=== PATIENT | female | born 1965 | race Caucasian/White ===

== ENCOUNTER 2021-12-06 23:38 | Observation (INO) | payer OTHER ==
[2021-12-06] MEDS ORDERED: Sodium Chloride 0.9% 10 ML Syringe FLUSH PRN (23:47)
[2021-12-06] MEDS ORDERED: Sodium Chloride 0.9% 20 ML SDV IV PRN (23:47)
[2021-12-06] MEDS ORDERED: Sodium Chloride 0.9% 2.5 ML Syringe FLUSH PRN (23:47)
[2021-12-07] MEDS ORDERED: Iopamidol 755 MG/ML 500 ML Multipack Bottle IVPUSH ONE (01:58)
[2021-12-07] MEDS ORDERED: Ondansetron 4 MG/2 ML SDV IVPUSH ONE (02:12)
[2021-12-07] MEDS ORDERED: Acetaminophen 325 MG Tab PO PRN (05:08)
[2021-12-07] MEDS ORDERED: Albuterol/Ipratropium 3.0-0.5 MG/3 ML Neb Soln NEB PRN (06:16)
[2021-12-07] MEDS ORDERED: Ondansetron 4 MG/2 ML SDV IVPUSH PRN (06:16)
[2021-12-07] MEDS ORDERED: Lactated Ringers 1,000 ML IV SCH (06:30)
[2021-12-07 07:19] LABS: CARBON DIOXIDE,CO2 25.4 mmol/L (21.0-32.0); POTASSIUM,K 4.8 mmol/L (3.5-5.1)
[2021-12-07] MEDS ORDERED: Pantoprazole 40 MG in Sodium Chloride 0.9% 10 ML IVPUSH SCH (09:00)
[2021-12-07] MEDS ORDERED: Aspirin 81 MG Tab.Chew PO SCH (10:45)
[2021-12-07 11:11] LABS: HEMOGLOBIN A1C 5.6 %
[2021-12-07 15:00] VITALS: BP 99/53; PULSE 64
[2021-12-07] MEDS ORDERED: atorvaSTATin 40 MG Tab PO SCH (21:00)
== END 2021-12-07 15:25 | disposition home or self-care (01) ==
LOC: MW.ED 23:38 → MW.MS 12-07 03:26
PROVIDERS: ADMIT Student in an Organized Health Care Education/Training Program; ATTEND Student in an Organized Health Care Education/Training Program
DX: R53.1 Weakness (principal); R41.82 Altered mental status, unspecified; G43.909 Migraine, unspecified, not intractable, without status migrainosus; E78.00 Pure hypercholesterolemia, unspecified; I10 Essential (primary) hypertension; E11.9 Type 2 diabetes mellitus without complications; Z79.82 Long term (current) use of aspirin; Z20.822 Contact with and (suspected) exposure to COVID-19; Z79.899 Other long term (current) drug therapy
CPT/HCPCS: 36415; 70450; 70496; 70498; 71045; 80048; 80053; 80061; 80305; 80307; 81001; 83036; 83735; 84100; 84443; 84484; 85025; 85610; 85730; 87086; 87635; A9270; C9113; J2405; J3490; J7120; Q9967; 99235; U0002